=== PATIENT | male | born 1965 | race Caucasian/White ===

== ENCOUNTER 2023-12-24 17:22 | Emergency (ER) | payer BC, SELFPAY ==
[2023-12-24 17:35] VITALS: BP 177/102
--- NOTE | 2023-12-24 18:12 | ED.GENMED ---
History of Present Illness
General
Chief Complaint: Musculo-Skeletal Complaint
Source: patient
Time Seen by Provider: 12/24/23 18:06
Travel History
Have you had any contact with someone who has COVID-19?: No
Do you have any symptoms of coronavirus? Fever > 100 degrees, chills, cough, shortness of breath, sore throat, loss of taste or smell, muscle aches, or headache?: No
History of Present Illness
History of Present Illness:
58-year-old male presents to the emergency room complaining of pain in the right tricep. Patient began experiencing pain couple days ago while performing a tricep workout with a dumbbell. He felt a twinge of pain that did improve with rest. He
has noticed some discoloration in the area which he thought might represent a significant tear in his tricep. He was concerned about this prompting his visit to the emergency room. No other complaints. Patient is right-hand dominant.
Past History
Past History
ED Past Medical History: GERD and Hypercholesterolemia
ED Past Surgical History: None
Social History
Tobacco: Non-smoker
Alcohol: None
Drug: None
Personal:
Living: with family
Phy Exam
Physical Exam
Physical Exam:
General: Awake, Alert, Oriented X3. No acute distress.
Vitals: unremarkable
Head: Atraumatic
Eyes: Pupils equal, EOMI
Throat: Airway intact, no exudates
Neuro:
Skin: Warm, dry, no rash
Extremities: pulses equal b/l, no edema. Moderate ecchymosis noted at the distal tricep. Tendon insertions appear intact. Range of motion is intact. Minimal tenderness palpation.
Course
Vital Signs
Initial and Last Documented VS:
Initial Vital Signs
Temp Pulse Resp BP Pulse Ox
97.6 F 95 20 177/102 99
12/24/23 17:35 12/24/23 17:35 12/24/23 17:35 12/24/23 17:35 12/24/23 17:35
Last Documented Vital Signs
Temp Pulse Resp BP Pulse Ox
97.6 F 95 20 177/102 99
12/24/23 17:35 12/24/23 17:35 12/24/23 17:35 12/24/23 17:35 12/24/23 17:35
MDM/Problems Addressed
Differential Diagnosis Includes:
Muscle strain, muscle tear, tendinitis
MDM/Problems Addressed:
Physical exam suggestive of minor muscle strain. No imaging indicated at this time. Recommend RICE
*Critical Care Note
Total Time (30-74mins, 75-104mins- exclusive of procedures): Not Applicable
ED Attending Note
-
Portions of this chart may have been created with voice recognition software.� Occasional wrong word or��sound alike� substitutions may have occurred due to the inherent limitations of voice recognition software.
Discharge Plan
Departure
Patient Disposition: Home (Routine Discharge)
Date of Disposition: 12/24/23
Time of Disposition: 18:13
Patient with high blood pressure during this ER visit?: Yes
Condition: Good
Discharge Problem:
Strain of right triceps muscle
Instructions: Muscle Strain (DC)
Prescriptions:
No Action
No Current Medications
0
Referrals:
Nehemiah Suarez MD [Active] -
Interventions
Interventions:
*Risk Screen - Suicide Last Done: 12/24/23 17:35
*General Assessment Last Done: 12/24/23 17:35
*Neglect/Abuse Screening Last Done: 12/24/23 17:35
Discharge Date and Time
Print Language: TUNISIAN
--- NOTE | 2023-12-24 18:22 | EDRN ---
Reviewed discharge instructions with patient. Verbalized understanding.
[2023-12-24 18:23] VITALS: BP 173/98
== END 2023-12-24 18:27 | disposition home or self-care (01) ==
LOC: EMR 17:22
PROVIDERS: EMERGENCY PHYSICIAN Emergency Medicine; FAMILY PHYSICIAN Internal Medicine
DX: S46.311A Strain of muscle, fascia and tendon of triceps, right arm, initial encounter (principal); S40.021A Contusion of right upper arm, initial encounter; X50.9XXA Other and unspecified overexertion or strenuous movements or postures, initial encounter; Y93.B3 Activity, free weights; R03.0 Elevated blood-pressure reading, without diagnosis of hypertension; E78.00 Pure hypercholesterolemia, unspecified; K21.9 Gastro-esophageal reflux disease without esophagitis
CPT/HCPCS: 99282